=== PATIENT | female | born 2000 | race Caucasian/White ===

== ENCOUNTER 2025-02-05 22:44 | Inpatient (IN) | payer OTHER, SELFPAY ==
[2025-02-05 22:58] VITALS: BP 134/94; BMI 35.5
[2025-02-06] MEDS: LR 1000 IV ×4 (00:15→12:48)
[2025-02-06 00:29] LABS: Hematocrit 38.3 % (37.0-47.0); Hemoglobin 13.1 g/dL (12.0-16.0); Mean Corp Hgb Conc. 34.2 g/dL (33.0-37.0); Mean Corpuscular Volume 91.4 fL (81.0-99.0); Nucleated Red Blood Cells % 0 %; Platelet Count 151 10^3/uL (130-400); Red Cell Dist. Width 14.0 % (11.5-14.5)
[2025-02-06 00:32] LABS: Urine Character Mucous (Clear)
[2025-02-06 00:43] LABS: Urine Red Blood Cell 80-90 /HPF (0-2)
[2025-02-06 00:44] LABS: Urine White Cell 26-30 /HPF (0-5)
[2025-02-06] MEDS: VANCOCIN 530 MG IV (00:48)
[2025-02-06 00:51] LABS: ALT (SGPT) 14 U/L (0-35); AST (SGOT) 48 U/L (14-36); Albumin 4.0 g/dl (3.5-5.0); Alkaline Phosphatase 116 U/L (38-126); Blood Urea Nitrogen 8 mg/dl (7-17); Calcium 9.4 mg/dl (8.4-10.2); Carbon Dioxide 20 mmol/L (22-30); Chloride 106 mmol/L (98-107); Estimated Creatinine Clearance > 125 ml/min; Glucose 94 mg/dl (70-99); Potassium 4.0 mmol/L (3.5-5.1); Sodium 136 mmol/L (135-145); Total Protein 6.6 g/dl (6.3-8.2); eGFR > 60.00
[2025-02-06] MEDS: BENADRYL 25 MG PO (02:21)
[2025-02-06] MEDS: VANCOCIN IV (08:20)
[2025-02-06] MEDS: FENTANYL/BUPIVACAINE 100 EPIDURAL (08:57)
[2025-02-06] MEDS: SUBLIMAZE 100 MCG EPIDURAL (09:01)
[2025-02-06] MEDS: PITOCIN 30 UNITS/NSS 500 ML IV (11:06)
[2025-02-06] MEDS: MOTRIN 600 MG PO (16:07)
[2025-02-06] MEDS: COLACE PO (20:00)
[2025-02-07 06:23] LABS: Hematocrit 33.0 % (37.0-47.0); Hemoglobin 10.7 g/dL (12.0-16.0)
[2025-02-07] MEDS: TYLENOL 650 MG PO (09:37)
[2025-02-07] MEDS: PRENATAL PLUS 1 TABLET PO (09:37)
[2025-02-07] MEDS: MOTRIN 600 MG PO (09:38)
[2025-02-07] MEDS: COLACE 100 MG PO ×2 (09:40→19:54)
[2025-02-07 14:37] LABS: Hepatitis B Surface Antigen Negative (Negative)
[2025-02-07 14:56] LABS: Hepatitis C Antibody Negative (Negative)
[2025-02-08] MEDS: MOTRIN 600 MG PO ×2 (00:40→13:47)
[2025-02-08] MEDS: PRENATAL PLUS 1 TABLET PO (08:42)
[2025-02-08] MEDS: COLACE 100 MG PO (08:42)
[2025-02-08 15:51] LABS: Syphilis/T. pallidum Ab Reflex Negative (Negative)
[2025-02-08 15:51] LABS: Syphilis/T. pallidum Ab Reflex Negative (Negative)
== END 2025-02-08 14:57 | disposition home or self-care (01) | DRG 807 ==
LOC: LDRP 22:44
PROVIDERS: Obstetrics & Gynecology; ADMITTING PHYSICIAN Obstetrics & Gynecology
PROC: 10907ZC Drainage of Amniotic Fluid, Therapeutic from Products of Conception, Via Natural or Artificial Opening (ICD-10-PCS; 2025-02-06)
PROC: 0UQMXZZ Repair Vulva, External Approach (ICD-10-PCS; 2025-02-06)
PROC: 10E0XZZ Delivery of Products of Conception, External Approach (ICD-10-PCS; 2025-02-06)
DX: O99.824 Streptococcus B carrier state complicating childbirth (principal); Z37.0 Single live birth; O70.0 First degree perineal laceration during delivery; Z3A.39 39 weeks gestation of pregnancy
CPT/HCPCS: 80053; 80306; 81003; 81015; 82570; 84156; 85014; 85018; 85025; 86704; 86706; 86762; 86780; 86803; 86850; 86900; 86901; 87086; 87340; 87389